=== PATIENT | female | born 2000 | race Caucasian/White ===

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

== ENCOUNTER 2022-06-18 13:32 | Emergency (ER) | payer OTHER ==
[~2022-06-18 13:32] MED LIST changes: +CYCLOBENZAPRINE10 MG PO
[2022-06-18 15:49] LABS: BILIRUBIN 1+ mg/dL (NEGATIVE); BLOOD NEGATIVE Ery/uL (NEGATIVE); CLARITY CLEAR (CLEAR); COLOR YELLOW (YELLOW); GLUCOSE (U) NORMAL (NORMAL); LEUKOCYTES NEGATIVE Leu/uL (NEGATIVE); NITRITE NEGATIVE (NEGATIVE); PROTEIN TRACE (LOW) mg/dL (NEGATIVE); SPECIFIC GRAVITY 1.025 (1.001-1.030); UROBILINOGEN 0.2 mg/dL (0.2-1.0)
[2022-06-18] MEDS ORDERED: MEDROL 4MG DOSEP4 MG PO (15:58)
[2022-06-18] MEDS ORDERED: CYCLOBENZAPRINE10 MG PO (15:58)
== END 2022-06-18 16:20 | disposition home or self-care (01) ==
LOC: FER 13:32
PROVIDERS: Physician Assistant
DX: M54.50 Low back pain, unspecified (principal); F17.290 Nicotine dependence, other tobacco product, uncomplicated; Z28.310 Unvaccinated for COVID-19
CPT/HCPCS: 72100; 81003; J1885